=== PATIENT | male | born 1960 | race Caucasian/White ===

== ENCOUNTER 2022-08-17 18:29 | Inpatient (IN) | payer MEDICAID, OTHER ==
[~2022-08-17] VITALS: Ht 185.4 cm; Wt 145.7 kg
[2022-08-17 20:25] LABS: Basophils # (auto) 0 10 ^3/uL (0-0.2); Basophils % (auto) 0.3 % (0.0-2.0); Eosinophils # (auto) 0 10 ^3/uL (0-0.8); Eosinophils % (auto) 0.6 % (0.0-7.0); Lymphocytes # (auto) 0.6 10 ^3/uL (0.4-5.4); Mean Corpuscular Hemoglobin 27.1 pg (28.0-32.0); Mean Corpuscular Hgb Conc. 29.8 g/dL (32.0-36.0); Mean Corpuscular Volume 90.7 fL (80.0-100.0); Monocytes # (auto) 0.6 10 ^3/uL (0-1.3); Monocytes % (auto) 8.8 % (0.0-12.0); Neutrophils # (auto) 5.2 10 ^3/uL (1.6-8.6); Neutrophils % (auto) 81.3 % (37.0-80.0); Nucleated Red Blood Cells % 0.1 %; Red Blood Cells 1.88 10^6/uL (4.5-5.90); Red Cell Distribution Width 17.7 % (11.8-14.3); White Blood Cell 6.4 10^3/uL (4.4-10.8)
[2022-08-17 20:45] LABS: Albumin 2.8 g/dL (3.4-5.0); BUN/Creatinine Ratio 17.9; Calcium 9.5 mg/dL (8.5-10.1)
[2022-08-17 20:48] LABS: Bilirubin, Total 1.8 mg/dL (0.2-1.0); Hemoglobin 5.1 g/dL (13.5-17.5); Total Protein 6.1 g/dL (6.4-8.2)
[2022-08-17 21:00] LABS: Potassium 7.1 mmol/L (3.5-5.1)
[2022-08-17] MEDS ORDERED: FUROSEMIDE 100 MG/10ML VIAL IV ONE (21:00)
[2022-08-17] MEDS ORDERED: ALBUTEROL MEDNEB 2.5 mg/3ml NEB ONE (21:12)
[2022-08-17] MEDS ORDERED: DEXTROSE (50%) 50ML SYRG IV ONE (21:15)
[2022-08-17] MEDS ORDERED: CALCIUM GLUC 1,000mg/50ml-NS 50 ML IV ONE (21:15)
[2022-08-17] MEDS ORDERED: ALBUTEROL SULF 2.5 MG/0.5ML(0.5%) NEB SOLN NEB ONE (21:15)
[2022-08-17] MEDS ORDERED: InsuLIN REG 1unit/0.01ml Soln (100units/ml) IV ONE (21:15)
[2022-08-17] MEDS ORDERED: PANTOPRAZOLE 40 MG/10 ML VIAL INJ IV ONE (23:00)
[2022-08-17] MEDS ORDERED: MORPHINE SULFATE INJ 2 MG/ml SYRG IV PRN (23:00)
[2022-08-17] MEDS ORDERED: NITROGLYCERIN 0.4 MG SL TAB SL PRN (23:00)
[2022-08-17] MEDS ORDERED: DEXTROSE (50%) 50ML SYRG IV PRN (23:00)
[2022-08-17] MEDS ORDERED: GABA300C10 PO (23:00)
[2022-08-17] MEDS ORDERED: LEVO175T66 PO (23:00)
[2022-08-17] MEDS ORDERED: metroNIDAZOLE 500MG/100ML 100 ML IV ONE (23:00)
[2022-08-17] MEDS ORDERED: cefTRIAXone 1GM/50ML D5W 50 ML IV ONE (23:00)
[2022-08-17] MEDS: SODIUM CHLORIDE 0.9% 1,000 ML IV SCH (23:15)
[2022-08-17 23:34] LABS: Folate (Folic Acid) > 24.00 ng/mL (5.38-24)
[2022-08-18] VITALS (16 sets, daily range): BP systolic 67–128; BP diastolic 34–108
[2022-08-18 00:16] LABS: BUN/Creatinine Ratio 17.1; Calcium 9.4 mg/dL (8.5-10.1)
[2022-08-18 00:25] LABS: Potassium 6.6 mmol/L (3.5-5.1)
[2022-08-18 01:08] LABS: Urine Bacteria FEW /hpf (None Seen); Urine Blood Negative /uL (Negative); Urine Hyaline Cast FEW /lpf (0 - 2); Urine Specific Gravity 1.012 (1.001-1.035); Urine WBC 2 /hpf (0 - 3)
[2022-08-18 05:22] LABS: Basophils # (auto) 0 10 ^3/uL (0-0.2); Lymphocytes # (auto) 0.7 10 ^3/uL (0.4-5.4); Monocytes # (auto) 0.9 10 ^3/uL (0-1.3); Neutrophils # (auto) 5.4 10 ^3/uL (1.6-8.6); Nucleated Red Blood Cells % 0.1 %
[2022-08-18 05:24] LABS: Basophils % (auto) 0.1 % (0.0-2.0); Eosinophils # (auto) 0 10 ^3/uL (0-0.8); Eosinophils % (auto) 0.6 % (0.0-7.0); Hematocrit 15.9 % (41.0-53.0); Lymphocytes % (auto) 9.7 % (10.0-50.0); Mean Corpuscular Hemoglobin 27.2 pg (28.0-32.0); Mean Corpuscular Hgb Conc. 30.8 g/dL (32.0-36.0); Mean Corpuscular Volume 88.1 fL (80.0-100.0); Monocytes % (auto) 12.3 % (0.0-12.0); Neutrophils % (auto) 77.3 % (37.0-80.0); Red Blood Cells 1.81 10^6/uL (4.5-5.90); Red Cell Distribution Width 17.5 % (11.8-14.3)
[2022-08-18 05:35] LABS: Hemoglobin 4.9 g/dL (13.5-17.5)
[2022-08-18 05:36] LABS: BUN/Creatinine Ratio 17.8; Calcium 9.5 mg/dL (8.5-10.1)
[2022-08-18 05:41] LABS: Potassium 6.4 mmol/L (3.5-5.1)
[2022-08-18] MEDS: InsuLIN REG 1unit/0.01ml Soln (100units/ml) SC SCH ×5 (06:00→23:52)
[2022-08-18] MEDS: ACCU-CHEK COMFORT CURVE STRIP VI SCH ×5 (06:00→23:51)
[2022-08-18] MEDS: metroNIDAZOLE 500MG/100ML 100 ML IV SCH ×3 (08:21→22:23)
[2022-08-18] MEDS ORDERED: SODIUM BICARBONATE 8.4 % INJ 50ML VIAL IV ONE ×2 (09:15→14:15)
[2022-08-18] MEDS ORDERED: DEXTROSE (50%) 50ML SYRG IV ONE ×2 (09:15→14:15)
[2022-08-18] MEDS ORDERED: FUROSEMIDE 100 MG/10ML VIAL IV ONE (09:15)
[2022-08-18] MEDS ORDERED: InsuLIN REG 1unit/0.01ml Soln (100units/ml) IV ONE ×2 (09:15→14:15)
[2022-08-18] MEDS ORDERED: CALCIUM GLUC 1,000mg/50ml-NS 50 ML IV ONE ×2 (09:15→14:15)
[2022-08-18 09:38] LABS: INR 1.26 (0.9-1.15)
[2022-08-18] MEDS ORDERED: FUROSEMIDE 20 MG/2 ML VIAL IV SCH (10:00)
[2022-08-18] MEDS: PANTOPRAZOLE 40 MG/10 ML VIAL INJ IV SCH ×2 (10:46→22:22)
[2022-08-18 11:58] LABS: Alcohol, Urine < 3.0 mg/dL (0-10); Amphetamine Screen, Urine NEGATIVE (NEGATIVE); Barbiturate Scree,Urine NEGATIVE (NEGATIVE); Benzodiazephine Screen, Urine POSITIVE (NEGATIVE); Cannabinoid Screen, Urine NEGATIVE (NEGATIVE); Cocaine Screen, Urine NEGATIVE (NEGATIVE); Opiate Scree,Urine NEGATIVE (NEGATIVE); Phencyclidine Screen, Urine NEGATIVE (NEGATIVE)
[2022-08-18 12:12] LABS: Hepatitis B Surface Antibody Negative (Negative)
[2022-08-18] MEDS ORDERED: AZITHROMYCIN 500MG/ 250ML 250 ML IV ONE (12:30)
[2022-08-18] MEDS ORDERED: LACTULOSE 20Gm/30ML SOLN PO ONE (12:45)
[2022-08-18 12:51] LABS: Hepatitis A Total Antibody Negative (Negative)
[2022-08-18 13:09] LABS: Basophils # (auto) 0 10 ^3/uL (0-0.2); Basophils % (auto) 0.6 % (0.0-2.0); Eosinophils # (auto) 0.1 10 ^3/uL (0-0.8); Hematocrit 20.7 % (41.0-53.0); Nucleated Red Blood Cells % 0.1 %; Red Blood Cells 2.37 10^6/uL (4.5-5.90); Red Cell Distribution Width 16.5 % (11.8-14.3)
[2022-08-18 13:10] LABS: Eosinophils % (auto) 1.5 % (0.0-7.0); Lymphocytes # (auto) 0.7 10 ^3/uL (0.4-5.4); Lymphocytes % (auto) 8.8 % (10.0-50.0); Mean Corpuscular Hemoglobin 28.1 pg (28.0-32.0); Mean Corpuscular Hgb Conc. 32.2 g/dL (32.0-36.0); Mean Corpuscular Volume 87.5 fL (80.0-100.0); Neutrophils # (auto) 5.8 10 ^3/uL (1.6-8.6); Neutrophils % (auto) 76.1 % (37.0-80.0); White Blood Cell 7.6 10^3/uL (4.4-10.8)
[2022-08-18 13:12] LABS: Hepatitis C Antibody Negative (Negative)
[2022-08-18 13:22] LABS: Hemoglobin 6.7 g/dL (13.5-17.5)
[2022-08-18] MEDS: SODIUM CHLORIDE 0.9% 1,000 ML IV SCH (13:27)
[2022-08-18 13:29] LABS: Albumin 2.7 g/dL (3.4-5.0); Calcium 9.5 mg/dL (8.5-10.1)
[2022-08-18 13:32] LABS: Bilirubin, Total 2.1 mg/dL (0.2-1.0); Total Protein 6.2 g/dL (6.4-8.2)
[2022-08-18 13:40] LABS: Potassium 6.1 mmol/L (3.5-5.1)
[2022-08-18] MEDS ORDERED: FUROSEMIDE 40 MG/4 ML VIAL IV ONE (14:15)
[2022-08-18] MEDS: DOPamine 1600MCG/ML D5W 250 ML IV SCH (15:39)
[2022-08-18] MEDS: ALBUMIN 25% 100 ML IV SCH ×2 (15:43→21:47)
[2022-08-18 18:07] LABS: % Iron Saturation 4.6 % (20-55)
[2022-08-18] MEDS: FUROSEMIDE 40 MG/4 ML VIAL IV SCH (18:45)
[2022-08-18] MEDS: cefTRIAXone 1GM/50ML D5W 50 ML IV SCH (21:06)
[2022-08-19 05:41] LABS: Calcium 9.9 mg/dL (8.5-10.1)
[2022-08-19 05:53] LABS: BUN/Creatinine Ratio 19.8; Potassium 5.8 mmol/L (3.5-5.1)
[2022-08-19] MEDS: FUROSEMIDE 40 MG/4 ML VIAL IV SCH ×3 (06:00→18:15)
[2022-08-19] MEDS: ALBUMIN 25% 100 ML IV SCH (06:23)
[2022-08-19] MEDS: metroNIDAZOLE 500MG/100ML 100 ML IV SCH ×3 (06:29→22:27)
[2022-08-19] MEDS: ACCU-CHEK COMFORT CURVE STRIP VI SCH ×3 (06:50→18:11)
[2022-08-19] MEDS: InsuLIN REG 1unit/0.01ml Soln (100units/ml) SC SCH ×3 (06:53→18:00)
[2022-08-19 09:11] LABS: Basophils # (auto) 0.1 10 ^3/uL (0-0.2); Eosinophils # (auto) 0.1 10 ^3/uL (0-0.8); Lymphocytes # (auto) 0.6 10 ^3/uL (0.4-5.4); Red Cell Distribution Width 16.5 % (11.8-14.3)
[2022-08-19 09:13] LABS: Basophils % (auto) 1.3 % (0.0-2.0); Hematocrit 22.4 % (41.0-53.0); Mean Corpuscular Hemoglobin 27.8 pg (28.0-32.0); Mean Corpuscular Hgb Conc. 31.1 g/dL (32.0-36.0); Mean Corpuscular Volume 89.5 fL (80.0-100.0); Monocytes # (auto) 0.7 10 ^3/uL (0-1.3); Monocytes % (auto) 9.3 % (0.0-12.0); Neutrophils # (auto) 5.6 10 ^3/uL (1.6-8.6); Neutrophils % (auto) 80.4 % (37.0-80.0); Nucleated Red Blood Cells % 0.2 %
[2022-08-19] MEDS: PANTOPRAZOLE 40 MG/10 ML VIAL INJ IV SCH ×2 (10:31→22:22)
[2022-08-19] MEDS: AZITHROMYCIN 500MG/ 250ML 250 ML IV SCH (10:31)
[2022-08-19 11:40] VITALS: BP 95/48
[2022-08-19 12:00] VITALS: BP 92/39
[2022-08-19] MEDS: NOREPINEPHRINE 8 MG/250ML KIT 250 ML IV SCH (13:09)
[2022-08-19] MEDS: LACTULOSE 20Gm/30ML SOLN PO SCH ×2 (13:40→17:58)
[2022-08-19] MEDS: DOPamine 1600MCG/ML D5W 250 ML IV SCH (13:40)
[2022-08-19 14:50] VITALS: BP 127/68
[2022-08-19] MEDS: SODIUM ZIRCONIUM CYCL 10 GM PAK PO SCH ×2 (15:34→22:22)
[2022-08-19] MEDS: OCTREOTIDE ACETATE 100 MCG/ML VL SUBCUT SCH ×2 (15:34→22:29)
[2022-08-19] MEDS: cefTRIAXone 1GM/50ML D5W 50 ML IV SCH (21:37)
[2022-08-20] MEDS: LACTULOSE 20Gm/30ML SOLN PO SCH ×4 (00:58→16:07)
[2022-08-20] MEDS: ACCU-CHEK COMFORT CURVE STRIP VI SCH ×4 (00:58→16:06)
[2022-08-20] MEDS: InsuLIN REG 1unit/0.01ml Soln (100units/ml) SC SCH ×4 (01:06→16:05)
[2022-08-20] MEDS: SODIUM ZIRCONIUM CYCL 10 GM PAK PO SCH (06:36)
[2022-08-20] MEDS: metroNIDAZOLE 500MG/100ML 100 ML IV SCH ×3 (06:36→23:02)
[2022-08-20] MEDS: OCTREOTIDE ACETATE 100 MCG/ML VL SUBCUT SCH ×3 (06:41→23:08)
[2022-08-20] MEDS: FUROSEMIDE 40 MG/4 ML VIAL IV SCH ×2 (06:41→16:07)
[2022-08-20] MEDS: AZITHROMYCIN 500MG/ 250ML 250 ML IV SCH (09:08)
[2022-08-20] MEDS: PANTOPRAZOLE 40 MG/10 ML VIAL INJ IV SCH ×2 (09:08→23:08)
[2022-08-20] MEDS: NOREPINEPHRINE 8 MG/250ML KIT 250 ML IV SCH (10:49)
[2022-08-20] MEDS: SODIUM BICARBONATE 50ML VIAL 50 ML in SOD CHL 0.45% 1,000 ML IV SCH (11:30)
[2022-08-20 13:12] LABS: Basophils # (auto) 0 10 ^3/uL (0-0.2); Basophils % (auto) 0.7 % (0.0-2.0); Eosinophils # (auto) 0.2 10 ^3/uL (0-0.8); Eosinophils % (auto) 2.8 % (0.0-7.0); Lymphocytes # (auto) 0.8 10 ^3/uL (0.4-5.4); Monocytes # (auto) 0.8 10 ^3/uL (0-1.3); Neutrophils # (auto) 5.2 10 ^3/uL (1.6-8.6); Red Cell Distribution Width 16.6 % (11.8-14.3)
[2022-08-20 13:14] LABS: Hematocrit 24.2 % (41.0-53.0); Hemoglobin 7.9 g/dL (13.5-17.5); Mean Corpuscular Hemoglobin 28.5 pg (28.0-32.0); Mean Corpuscular Hgb Conc. 32.4 g/dL (32.0-36.0); Mean Corpuscular Volume 87.8 fL (80.0-100.0); Monocytes % (auto) 11.6 % (0.0-12.0); Neutrophils % (auto) 73.9 % (37.0-80.0); Nucleated Red Blood Cells % 0.2 %; Red Blood Cells 2.76 10^6/uL (4.5-5.90)
[2022-08-20] MEDS: DOPamine 1600MCG/ML D5W 250 ML IV SCH (13:52)
[2022-08-20] MEDS ORDERED: METOPROLOL TARTRATE 1MG/1ML-5ML VIAL IV ONE (15:00)
[2022-08-20] MEDS: cefTRIAXone 1GM/50ML D5W 50 ML IV SCH (21:40)
[2022-08-20] MEDS ORDERED: AMIODARONE HCL 200 MG TAB PO ONE (22:15)
[2022-08-21] MEDS: ACCU-CHEK COMFORT CURVE STRIP VI SCH ×4 (01:22→18:02)
[2022-08-21] MEDS: LACTULOSE 20Gm/30ML SOLN PO SCH ×4 (01:36→18:11)
[2022-08-21] MEDS: InsuLIN REG 1unit/0.01ml Soln (100units/ml) SC SCH ×4 (01:39→18:13)
[2022-08-21] MEDS: SODIUM BICARBONATE 50ML VIAL 50 ML in SOD CHL 0.45% 1,000 ML IV SCH (01:39)
[2022-08-21] MEDS ORDERED: METOPROLOL TARTRATE 1MG/1ML-5ML VIAL IV ONE (03:45)
[2022-08-21] MEDS ORDERED: SODIUM BICARBONATE 50ML VIAL 50 ML in SOD CHL 0.45% 1,000 ML IV SCH (04:00)
[2022-08-21] MEDS: NOREPINEPHRINE 8 MG/250ML KIT 250 ML IV SCH (05:38)
[2022-08-21] MEDS: FUROSEMIDE 40 MG/4 ML VIAL IV SCH ×2 (06:18→18:12)
[2022-08-21] MEDS: OCTREOTIDE ACETATE 100 MCG/ML VL SUBCUT SCH ×3 (06:19→22:02)
[2022-08-21] MEDS: metroNIDAZOLE 500MG/100ML 100 ML IV SCH ×3 (06:19→21:58)
[2022-08-21 09:06] LABS: Basophils # (auto) 0.1 10 ^3/uL (0-0.2); Eosinophils # (auto) 0.2 10 ^3/uL (0-0.8); Mean Corpuscular Hemoglobin 27.8 pg (28.0-32.0); Nucleated Red Blood Cells % 0.1 %
[2022-08-21 09:08] LABS: Basophils % (auto) 0.9 % (0.0-2.0); Eosinophils % (auto) 2.3 % (0.0-7.0); Hematocrit 25.5 % (41.0-53.0); Lymphocytes # (auto) 1.1 10 ^3/uL (0.4-5.4); Lymphocytes % (auto) 11.9 % (10.0-50.0); Mean Corpuscular Hgb Conc. 31.6 g/dL (32.0-36.0); Mean Corpuscular Volume 87.9 fL (80.0-100.0); Neutrophils # (auto) 6.8 10 ^3/uL (1.6-8.6); Neutrophils % (auto) 73.9 % (37.0-80.0); Red Cell Distribution Width 16.7 % (11.8-14.3); White Blood Cell 9.2 10^3/uL (4.4-10.8)
[2022-08-21 09:16] LABS: Albumin 2.9 g/dL (3.4-5.0); Calcium 8.9 mg/dL (8.5-10.1); Potassium 4.6 mmol/L (3.5-5.1)
[2022-08-21 09:19] LABS: BUN/Creatinine Ratio 22.8; Total Protein 5.9 g/dL (6.4-8.2)
[2022-08-21] MEDS: AZITHROMYCIN 500MG/ 250ML 250 ML IV SCH (10:39)
[2022-08-21] MEDS: PANTOPRAZOLE 40 MG/10 ML VIAL INJ IV SCH ×2 (10:39→21:58)
[2022-08-21] MEDS: AMIODARONE HCL 200 MG TAB PO SCH ×2 (10:40→22:01)
[2022-08-21] MEDS: SODIUM CHLORIDE 0.9% 1,000 ML IV SCH ×2 (12:49→21:34)
[2022-08-21 13:25] LABS: Protein, Urine 6.5 mg/dL (0.0-11.9)
[2022-08-21] MEDS: cefTRIAXone 1GM/50ML D5W 50 ML IV SCH (21:00)
[2022-08-22] VITALS (58 sets, daily range): BP systolic 86–121; BP diastolic 42–84
[2022-08-22] MEDS: ACCU-CHEK COMFORT CURVE STRIP VI SCH ×4 (00:30→18:11)
[2022-08-22] MEDS: InsuLIN REG 1unit/0.01ml Soln (100units/ml) SC SCH ×4 (00:33→18:00)
[2022-08-22 05:25] LABS: Albumin 2.8 g/dL (3.4-5.0); Calcium 8.6 mg/dL (8.5-10.1); Potassium 4.1 mmol/L (3.5-5.1)
[2022-08-22 05:28] LABS: BUN/Creatinine Ratio 24.3; Bilirubin, Total 1.5 mg/dL (0.2-1.0); Total Protein 5.2 g/dL (6.4-8.2)
[2022-08-22] MEDS: metroNIDAZOLE 500MG/100ML 100 ML IV SCH ×3 (05:32→22:41)
[2022-08-22] MEDS: OCTREOTIDE ACETATE 100 MCG/ML VL SUBCUT SCH ×3 (05:49→22:40)
[2022-08-22] MEDS: FUROSEMIDE 40 MG/4 ML VIAL IV SCH ×2 (06:07→18:27)
[2022-08-22 06:19] LABS: Basophils # (auto) 0 10 ^3/uL (0-0.2); Eosinophils # (auto) 0.1 10 ^3/uL (0-0.8); Lymphocytes # (auto) 0.7 10 ^3/uL (0.4-5.4); Lymphocytes % (auto) 16.4 % (10.0-50.0); Monocytes # (auto) 0.5 10 ^3/uL (0-1.3)
[2022-08-22 06:21] LABS: Basophils % (auto) 0.5 % (0.0-2.0); Eosinophils % (auto) 2.3 % (0.0-7.0); Mean Corpuscular Hemoglobin 27.9 pg (28.0-32.0); Mean Corpuscular Hgb Conc. 31.8 g/dL (32.0-36.0); Mean Corpuscular Volume 87.7 fL (80.0-100.0); Monocytes % (auto) 10.9 % (0.0-12.0); Neutrophils % (auto) 69.9 % (37.0-80.0); Nucleated Red Blood Cells % 0.2 %; White Blood Cell 4.3 10^3/uL (4.4-10.8)
[2022-08-22] MEDS: LEVOTHYROXINE SODIUM 50 MCG TAB PO SCH (06:50)
[2022-08-22] MEDS: SODIUM CHLORIDE 0.9% 1,000 ML IV SCH ×3 (07:40→20:51)
[2022-08-22] MEDS ORDERED: MIDODRINE HCL 10 MG TAB PO ONE (08:15)
[2022-08-22] MEDS ORDERED: MIDODRINE HCL 10 MG TAB PO SCH (10:00)
[2022-08-22] MEDS: AZITHROMYCIN 500MG/ 250ML 250 ML IV SCH (10:19)
[2022-08-22] MEDS: AMIODARONE HCL 200 MG TAB PO SCH ×2 (10:19→22:39)
[2022-08-22] MEDS: LACTULOSE 20Gm/30ML SOLN PO SCH ×2 (10:19→22:00)
[2022-08-22] MEDS: PANTOPRAZOLE 40 MG/10 ML VIAL INJ IV SCH ×2 (10:19→22:38)
[2022-08-22] MEDS: NOREPINEPHRINE 8 MG/250ML KIT 250 ML IV SCH (10:45)
[2022-08-22] MEDS ORDERED: TAMS0.4C36 PO (11:35)
[2022-08-22] MEDS ORDERED: ALLO100T PO (11:35)
[2022-08-22] MEDS ORDERED: GAB100C PO (11:35)
[2022-08-22] MEDS ORDERED: FURO40TA4 PO (11:35)
[2022-08-22] MEDS ORDERED: FOLI1TAB6 PO (11:36)
[2022-08-22] MEDS ORDERED: ATOR20TA50 PO (11:36)
[2022-08-22] MEDS ORDERED: PANT40T PO (11:36)
[2022-08-22] MEDS ORDERED: MAGN400T6 PO (11:36)
[2022-08-22] MEDS: MIDODRINE HCL 10 MG TAB PO SCH ×2 (13:00→18:28)
[2022-08-22] MEDS: cefTRIAXone 1GM/50ML D5W 50 ML IV SCH (20:51)
[2022-08-23] VITALS (62 sets, daily range): BP systolic 80–119; BP diastolic 38–70
[2022-08-23] MEDS: InsuLIN REG 1unit/0.01ml Soln (100units/ml) SC SCH ×4 (00:39→18:30)
[2022-08-23] MEDS: ACCU-CHEK COMFORT CURVE STRIP VI SCH ×4 (00:40→18:23)
[2022-08-23 04:27] LABS: Basophils # (auto) 0 10 ^3/uL (0-0.2); Eosinophils # (auto) 0.1 10 ^3/uL (0-0.8); Hemoglobin 7.8 g/dL (13.5-17.5); Lymphocytes # (auto) 0.6 10 ^3/uL (0.4-5.4); Monocytes # (auto) 0.4 10 ^3/uL (0-1.3); Nucleated Red Blood Cells % 0.1 %; Red Cell Distribution Width 17.5 % (11.8-14.3)
[2022-08-23 04:28] LABS: Basophils % (auto) 0.8 % (0.0-2.0); Eosinophils % (auto) 3.2 % (0.0-7.0); Hematocrit 24.7 % (41.0-53.0); Lymphocytes % (auto) 16.7 % (10.0-50.0); Mean Corpuscular Hemoglobin 27.9 pg (28.0-32.0); Mean Corpuscular Hgb Conc. 31.8 g/dL (32.0-36.0); Mean Corpuscular Volume 87.8 fL (80.0-100.0); Monocytes % (auto) 10.2 % (0.0-12.0); Neutrophils # (auto) 2.5 10 ^3/uL (1.6-8.6); Neutrophils % (auto) 69.1 % (37.0-80.0); Red Blood Cells 2.81 10^6/uL (4.5-5.90); White Blood Cell 3.6 10^3/uL (4.4-10.8)
[2022-08-23 04:37] LABS: Albumin 2.7 g/dL (3.4-5.0); Calcium 8.6 mg/dL (8.5-10.1); Potassium 3.9 mmol/L (3.5-5.1)
[2022-08-23 04:41] LABS: BUN/Creatinine Ratio 22.3; Bilirubin, Total 1.8 mg/dL (0.2-1.0); Total Protein 5.3 g/dL (6.4-8.2)
[2022-08-23] MEDS: FUROSEMIDE 40 MG/4 ML VIAL IV SCH ×2 (05:47→18:13)
[2022-08-23] MEDS: metroNIDAZOLE 500MG/100ML 100 ML IV SCH ×3 (05:47→21:51)
[2022-08-23] MEDS: MIDODRINE HCL 10 MG TAB PO SCH ×3 (05:48→18:07)
[2022-08-23] MEDS: OCTREOTIDE ACETATE 100 MCG/ML VL SUBCUT SCH ×3 (06:03→21:51)
[2022-08-23] MEDS: SODIUM CHLORIDE 0.9% 1,000 ML IV SCH (06:04)
[2022-08-23] MEDS: LEVOTHYROXINE SODIUM 50 MCG TAB PO SCH (06:56)
[2022-08-23] MEDS: LACTULOSE 20Gm/30ML SOLN PO SCH ×2 (09:45→21:03)
[2022-08-23] MEDS: AMIODARONE HCL 200 MG TAB PO SCH ×2 (09:45→21:51)
[2022-08-23] MEDS: PANTOPRAZOLE 40 MG/10 ML VIAL INJ IV SCH ×2 (09:45→21:50)
[2022-08-23] MEDS: AZITHROMYCIN 500MG/ 250ML 250 ML IV SCH (09:45)
[2022-08-23] MEDS: cefTRIAXone 1GM/50ML D5W 50 ML IV SCH (21:04)
[2022-08-24] VITALS (41 sets, daily range): BP systolic 83–123; BP diastolic 34–77
[2022-08-24] MEDS: ACCU-CHEK COMFORT CURVE STRIP VI SCH ×5 (01:16→22:58)
[2022-08-24] MEDS: InsuLIN REG 1unit/0.01ml Soln (100units/ml) SC SCH ×5 (01:16→23:01)
[2022-08-24 03:48] LABS: Basophils # (auto) 0 10 ^3/uL (0-0.2); Basophils % (auto) 0.8 % (0.0-2.0); Eosinophils # (auto) 0.1 10 ^3/uL (0-0.8); Hematocrit 26.6 % (41.0-53.0); Hemoglobin 8.5 g/dL (13.5-17.5); Lymphocytes # (auto) 0.6 10 ^3/uL (0.4-5.4); Lymphocytes % (auto) 16.1 % (10.0-50.0); Mean Corpuscular Hemoglobin 27.9 pg (28.0-32.0); Mean Corpuscular Hgb Conc. 31.8 g/dL (32.0-36.0); Monocytes # (auto) 0.4 10 ^3/uL (0-1.3); Monocytes % (auto) 9.3 % (0.0-12.0); Neutrophils # (auto) 2.8 10 ^3/uL (1.6-8.6); Neutrophils % (auto) 71.8 % (37.0-80.0); Nucleated Red Blood Cells % 0.1 %; Red Blood Cells 3.03 10^6/uL (4.5-5.90); Red Cell Distribution Width 17.5 % (11.8-14.3); White Blood Cell 3.9 10^3/uL (4.4-10.8)
[2022-08-24 04:14] LABS: BUN/Creatinine Ratio 20.3; Calcium 8.9 mg/dL (8.5-10.1); Magnesium 1.6 mg/dL (1.6-2.6); Potassium 3.8 mmol/L (3.5-5.1)
[2022-08-24] MEDS: FUROSEMIDE 40 MG/4 ML VIAL IV SCH ×2 (06:24→18:10)
[2022-08-24] MEDS: MIDODRINE HCL 10 MG TAB PO SCH ×3 (06:24→18:10)
[2022-08-24] MEDS: metroNIDAZOLE 500MG/100ML 100 ML IV SCH ×3 (06:24→21:38)
[2022-08-24] MEDS: OCTREOTIDE ACETATE 100 MCG/ML VL SUBCUT SCH ×3 (06:25→21:44)
[2022-08-24] MEDS: LEVOTHYROXINE SODIUM 50 MCG TAB PO SCH (06:41)
[2022-08-24] MEDS ORDERED: DEXTROSE (50%) 50ML SYRG IV PRN (08:00)
[2022-08-24] MEDS: AMIODARONE HCL 200 MG TAB PO SCH ×2 (10:06→21:39)
[2022-08-24] MEDS: PANTOPRAZOLE 40 MG/10 ML VIAL INJ IV SCH ×2 (10:06→21:39)
[2022-08-24] MEDS: AZITHROMYCIN 500MG/ 250ML 250 ML IV SCH (10:06)
[2022-08-24] MEDS: MAGNESIUM SULFATE 1GM/100ML 100 ML IV SCH ×2 (10:19→12:01)
[2022-08-24] MEDS ORDERED: fentaNYL CITRATE 100 MCG/2 ML VL ONE (15:16)
[2022-08-24] MEDS ORDERED: MIDAZOLAM HCL 2MG/2ML 2ml VIAL (1mg/ml) ONE (15:17)
[2022-08-24] MEDS ORDERED: PROPOFOL 10 MG/ML 20 ML IV ONE (15:26)
[2022-08-24] MEDS: cefTRIAXone 1GM/50ML D5W 50 ML IV SCH (21:05)
[2022-08-25] VITALS (21 sets, daily range): BP systolic 96–118; BP diastolic 39–67
[2022-08-25 03:55] LABS: Basophils # (auto) 0 10 ^3/uL (0-0.2); Eosinophils # (auto) 0.1 10 ^3/uL (0-0.8); Hemoglobin 8.3 g/dL (13.5-17.5); Lymphocytes # (auto) 0.7 10 ^3/uL (0.4-5.4); Monocytes # (auto) 0.5 10 ^3/uL (0-1.3); Neutrophils # (auto) 3.9 10 ^3/uL (1.6-8.6); Nucleated Red Blood Cells % 0.1 %; White Blood Cell 5.2 10^3/uL (4.4-10.8)
[2022-08-25 03:58] LABS: Basophils % (auto) 0.5 % (0.0-2.0); Eosinophils % (auto) 1.8 % (0.0-7.0); Lymphocytes % (auto) 13.2 % (10.0-50.0); Mean Corpuscular Hemoglobin 27.9 pg (28.0-32.0); Mean Corpuscular Hgb Conc. 31.9 g/dL (32.0-36.0); Mean Corpuscular Volume 87.5 fL (80.0-100.0); Neutrophils % (auto) 75.5 % (37.0-80.0); Red Blood Cells 2.97 10^6/uL (4.5-5.90); Red Cell Distribution Width 18.3 % (11.8-14.3)
[2022-08-25 04:05] LABS: BUN/Creatinine Ratio 19.3; Calcium 8.7 mg/dL (8.5-10.1); Potassium 3.7 mmol/L (3.5-5.1)
[2022-08-25 04:06] LABS: INR 1.58 (0.9-1.15)
[2022-08-25] MEDS: FUROSEMIDE 40 MG/4 ML VIAL IV SCH ×2 (05:57→17:38)
[2022-08-25] MEDS: metroNIDAZOLE 500MG/100ML 100 ML IV SCH ×3 (05:57→22:00)
[2022-08-25] MEDS: OCTREOTIDE ACETATE 100 MCG/ML VL SUBCUT SCH ×3 (05:58→21:09)
[2022-08-25] MEDS: MIDODRINE HCL 10 MG TAB PO SCH ×3 (05:59→17:38)
[2022-08-25] MEDS: InsuLIN REG 1unit/0.01ml Soln (100units/ml) SC SCH ×4 (06:34→21:21)
[2022-08-25] MEDS: LEVOTHYROXINE SODIUM 50 MCG TAB PO SCH (06:34)
[2022-08-25] MEDS: ACCU-CHEK COMFORT CURVE STRIP VI SCH ×4 (06:35→21:12)
[2022-08-25] MEDS: AMIODARONE HCL 200 MG TAB PO SCH ×2 (09:31→21:10)
[2022-08-25] MEDS: PANTOPRAZOLE 40 MG/10 ML VIAL INJ IV SCH ×2 (09:33→21:09)
[2022-08-25] MEDS: AZITHROMYCIN 500MG/ 250ML 250 ML IV SCH (09:33)
[2022-08-25] MEDS: MAGNESIUM SULFATE 1GM/100ML 100 ML IV SCH ×2 (11:22→13:27)
[2022-08-25] MEDS: cefTRIAXone 1GM/50ML D5W 50 ML IV SCH (21:05)
[2022-08-26 05:55] LABS: Basophils # (auto) 0 10 ^3/uL (0-0.2); Basophils % (auto) 0.5 % (0.0-2.0); Eosinophils # (auto) 0.1 10 ^3/uL (0-0.8); Eosinophils % (auto) 1.8 % (0.0-7.0); Hematocrit 27.5 % (41.0-53.0); Hemoglobin 8.7 g/dL (13.5-17.5); Lymphocytes # (auto) 0.9 10 ^3/uL (0.4-5.4); Lymphocytes % (auto) 14.7 % (10.0-50.0); Mean Corpuscular Hemoglobin 28.1 pg (28.0-32.0); Mean Corpuscular Hgb Conc. 31.7 g/dL (32.0-36.0); Mean Corpuscular Volume 88.6 fL (80.0-100.0); Monocytes # (auto) 0.5 10 ^3/uL (0-1.3); Neutrophils # (auto) 4.5 10 ^3/uL (1.6-8.6); Nucleated Red Blood Cells % 0.1 %; Red Blood Cells 3.11 10^6/uL (4.5-5.90); Red Cell Distribution Width 18.6 % (11.8-14.3)
[2022-08-26] MEDS: OCTREOTIDE ACETATE 100 MCG/ML VL SUBCUT SCH ×4 (06:00→22:59)
[2022-08-26 06:02] LABS: BUN/Creatinine Ratio 16.9; Potassium 3.6 mmol/L (3.5-5.1)
[2022-08-26] MEDS: metroNIDAZOLE 500MG/100ML 100 ML IV SCH ×3 (06:04→23:50)
[2022-08-26] MEDS: MIDODRINE HCL 10 MG TAB PO SCH ×3 (06:08→17:59)
[2022-08-26] MEDS: LEVOTHYROXINE SODIUM 50 MCG TAB PO SCH (06:12)
[2022-08-26] MEDS: ACCU-CHEK COMFORT CURVE STRIP VI SCH ×4 (06:13→22:00)
[2022-08-26] MEDS: FUROSEMIDE 40 MG/4 ML VIAL IV SCH ×2 (06:13→17:59)
[2022-08-26] MEDS: InsuLIN REG 1unit/0.01ml Soln (100units/ml) SC SCH ×4 (06:13→22:00)
[2022-08-26 09:25] VITALS: BP 115/68
[2022-08-26] MEDS: PANTOPRAZOLE 40 MG/10 ML VIAL INJ IV SCH ×2 (09:55→22:54)
[2022-08-26] MEDS: AMIODARONE HCL 200 MG TAB PO SCH ×2 (09:55→22:53)
[2022-08-26] MEDS: AZITHROMYCIN 500MG/ 250ML 250 ML IV SCH (09:55)
[2022-08-26 13:52] VITALS: BP 117/63
[2022-08-26 17:23] VITALS: BP 111/47
[2022-08-26 22:00] VITALS: BP 100/61
[2022-08-26] MEDS: cefTRIAXone 1GM/50ML D5W 50 ML IV SCH (22:55)
[2022-08-27 05:00] VITALS: BP 95/59
[2022-08-27 05:21] LABS: Basophils # (auto) 0 10 ^3/uL (0-0.2); Basophils % (auto) 0.8 % (0.0-2.0); Eosinophils # (auto) 0.1 10 ^3/uL (0-0.8); Eosinophils % (auto) 2.1 % (0.0-7.0); Hematocrit 28.9 % (41.0-53.0); Hemoglobin 9.2 g/dL (13.5-17.5); Lymphocytes # (auto) 0.8 10 ^3/uL (0.4-5.4); Lymphocytes % (auto) 14.3 % (10.0-50.0); Mean Corpuscular Hemoglobin 28.1 pg (28.0-32.0); Mean Corpuscular Hgb Conc. 31.8 g/dL (32.0-36.0); Mean Corpuscular Volume 88.2 fL (80.0-100.0); Monocytes # (auto) 0.5 10 ^3/uL (0-1.3); Monocytes % (auto) 8.9 % (0.0-12.0); Neutrophils # (auto) 4.4 10 ^3/uL (1.6-8.6); Neutrophils % (auto) 73.9 % (37.0-80.0); Red Blood Cells 3.28 10^6/uL (4.5-5.90); Red Cell Distribution Width 19.5 % (11.8-14.3)
[2022-08-27 05:42] LABS: BUN/Creatinine Ratio 14.6
[2022-08-27] MEDS: OCTREOTIDE ACETATE 100 MCG/ML VL SUBCUT SCH ×4 (06:03→22:00)
[2022-08-27] MEDS: MIDODRINE HCL 10 MG TAB PO SCH ×3 (06:03→17:42)
[2022-08-27] MEDS: metroNIDAZOLE 500MG/100ML 100 ML IV SCH ×3 (06:05→23:20)
[2022-08-27] MEDS: ACCU-CHEK COMFORT CURVE STRIP VI SCH ×4 (06:12→22:00)
[2022-08-27] MEDS: InsuLIN REG 1unit/0.01ml Soln (100units/ml) SC SCH ×4 (06:13→22:54)
[2022-08-27] MEDS: LEVOTHYROXINE SODIUM 50 MCG TAB PO SCH (07:02)
[2022-08-27] MEDS: FUROSEMIDE 40 MG/4 ML VIAL IV SCH ×2 (07:06→17:42)
[2022-08-27 09:00] VITALS: BP 107/58
[2022-08-27] MEDS: AMIODARONE HCL 200 MG TAB PO SCH ×2 (09:58→22:51)
[2022-08-27] MEDS: PANTOPRAZOLE 40 MG/10 ML VIAL INJ IV SCH ×2 (09:58→22:50)
[2022-08-27] MEDS: AZITHROMYCIN 500MG/ 250ML 250 ML IV SCH (09:58)
[2022-08-27 13:00] VITALS: BP 90/44
[2022-08-27 17:00] VITALS: BP 100/56
[2022-08-27 22:00] VITALS: BP 109/67
[2022-08-27] MEDS: cefTRIAXone 1GM/50ML D5W 50 ML IV SCH (22:50)
[2022-08-28 05:00] VITALS: BP 92/60
[2022-08-28] MEDS: OCTREOTIDE ACETATE 100 MCG/ML VL SUBCUT SCH ×3 (06:00→21:51)
[2022-08-28 06:17] LABS: Basophils # (auto) 0 10 ^3/uL (0-0.2); Basophils % (auto) 0.7 % (0.0-2.0); Eosinophils # (auto) 0.1 10 ^3/uL (0-0.8); Eosinophils % (auto) 2.1 % (0.0-7.0); Hematocrit 27.3 % (41.0-53.0); Hemoglobin 8.9 g/dL (13.5-17.5); Lymphocytes # (auto) 0.6 10 ^3/uL (0.4-5.4); Lymphocytes % (auto) 14.5 % (10.0-50.0); Mean Corpuscular Hemoglobin 28.6 pg (28.0-32.0); Mean Corpuscular Hgb Conc. 32.5 g/dL (32.0-36.0); Mean Corpuscular Volume 87.9 fL (80.0-100.0); Monocytes # (auto) 0.3 10 ^3/uL (0-1.3); Monocytes % (auto) 7.5 % (0.0-12.0); Neutrophils # (auto) 3.3 10 ^3/uL (1.6-8.6); Neutrophils % (auto) 75.2 % (37.0-80.0); Red Blood Cells 3.11 10^6/uL (4.5-5.90); Red Cell Distribution Width 19.6 % (11.8-14.3); White Blood Cell 4.4 10^3/uL (4.4-10.8)
[2022-08-28] MEDS: metroNIDAZOLE 500MG/100ML 100 ML IV SCH ×3 (06:23→22:43)
[2022-08-28] MEDS: ACCU-CHEK COMFORT CURVE STRIP VI SCH ×4 (06:24→21:49)
[2022-08-28] MEDS: FUROSEMIDE 40 MG/4 ML VIAL IV SCH ×2 (06:24→17:33)
[2022-08-28] MEDS: LEVOTHYROXINE SODIUM 50 MCG TAB PO SCH (06:24)
[2022-08-28] MEDS: MIDODRINE HCL 10 MG TAB PO SCH ×3 (06:24→17:34)
[2022-08-28 06:27] LABS: Potassium 3.7 mmol/L (3.5-5.1)
[2022-08-28 06:28] LABS: BUN/Creatinine Ratio 15.3
[2022-08-28] MEDS: InsuLIN REG 1unit/0.01ml Soln (100units/ml) SC SCH ×3 (06:39→22:04)
[2022-08-28 08:00] VITALS: BP 114/57
[2022-08-28] MEDS: AMIODARONE HCL 200 MG TAB PO SCH ×2 (09:53→21:50)
[2022-08-28] MEDS: PANTOPRAZOLE 40 MG/10 ML VIAL INJ IV SCH ×2 (09:53→21:50)
[2022-08-28] MEDS: AZITHROMYCIN 500MG/ 250ML 250 ML IV SCH (09:54)
[2022-08-28 12:00] VITALS: BP 90/53
[2022-08-28 14:46] LABS: INR 1.51 (0.9-1.15)
[2022-08-28 16:00] VITALS: BP 102/63
[2022-08-28] MEDS: cefTRIAXone 1GM/50ML D5W 50 ML IV SCH (21:17)
[2022-08-28 22:00] VITALS: BP 101/57
[2022-08-29 05:00] VITALS: BP 99/53
[2022-08-29] MEDS: metroNIDAZOLE 500MG/100ML 100 ML IV SCH ×3 (05:17→22:23)
[2022-08-29] MEDS: FUROSEMIDE 40 MG/4 ML VIAL IV SCH ×2 (05:18→18:00)
[2022-08-29] MEDS: OCTREOTIDE ACETATE 100 MCG/ML VL SUBCUT SCH ×3 (05:18→22:00)
[2022-08-29] MEDS: MIDODRINE HCL 10 MG TAB PO SCH ×3 (05:18→18:52)
[2022-08-29] MEDS: ACCU-CHEK COMFORT CURVE STRIP VI SCH ×4 (06:38→21:18)
[2022-08-29] MEDS: InsuLIN REG 1unit/0.01ml Soln (100units/ml) SC SCH ×4 (06:38→21:19)
[2022-08-29] MEDS: LEVOTHYROXINE SODIUM 50 MCG TAB PO SCH (06:39)
[2022-08-29 09:00] VITALS: BP 111/61
[2022-08-29] MEDS: PANTOPRAZOLE 40 MG/10 ML VIAL INJ IV SCH ×2 (10:35→21:17)
[2022-08-29] MEDS: AMIODARONE HCL 200 MG TAB PO SCH ×2 (10:35→21:17)
[2022-08-29] MEDS: AZITHROMYCIN 500MG/ 250ML 250 ML IV SCH (10:36)
[2022-08-29] MEDS ORDERED: ZOLPIDEM TARTRATE 5 MG TAB PO PRN (11:15)
[2022-08-29 13:00] VITALS: BP 103/49
[2022-08-29] MEDS ORDERED: ONDANSETRON HCL 4 MG/2 ML VIAL IM ONE (16:15)
[2022-08-29 17:00] VITALS: BP 112/58
[2022-08-29] MEDS: cefTRIAXone 1GM/50ML D5W 50 ML IV SCH (20:51)
[2022-08-29 22:00] VITALS: BP 113/59
[2022-08-30 05:00] VITALS: BP 100/64
[2022-08-30] MEDS: MIDODRINE HCL 10 MG TAB PO SCH ×3 (05:48→18:00)
[2022-08-30] MEDS: OCTREOTIDE ACETATE 100 MCG/ML VL SUBCUT SCH ×2 (05:48→14:00)
[2022-08-30] MEDS: FUROSEMIDE 40 MG/4 ML VIAL IV SCH ×2 (05:48→18:00)
[2022-08-30] MEDS: metroNIDAZOLE 500MG/100ML 100 ML IV SCH ×2 (05:48→14:00)
[2022-08-30 06:11] LABS: Potassium 3.7 mmol/L (3.5-5.1)
[2022-08-30 06:18] LABS: Albumin 2.7 g/dL (3.4-5.0); BUN/Creatinine Ratio 14.4; Bilirubin, Total 1.4 mg/dL (0.2-1.0); Calcium 8.5 mg/dL (8.5-10.1); Total Protein 5.4 g/dL (6.4-8.2)
[2022-08-30] MEDS: ACCU-CHEK COMFORT CURVE STRIP VI SCH ×3 (06:23→17:00)
[2022-08-30] MEDS: InsuLIN REG 1unit/0.01ml Soln (100units/ml) SC SCH ×3 (06:23→17:00)
[2022-08-30] MEDS: LEVOTHYROXINE SODIUM 50 MCG TAB PO SCH (06:25)
[2022-08-30 09:00] VITALS: BP 105/62
[2022-08-30] MEDS: AMIODARONE HCL 200 MG TAB PO SCH (11:47)
[2022-08-30] MEDS: PANTOPRAZOLE 40 MG/10 ML VIAL INJ IV SCH (11:47)
[2022-08-30] MEDS: AZITHROMYCIN 500MG/ 250ML 250 ML IV SCH (11:47)
[2022-08-30 13:00] VITALS: BP 115/68
[2022-08-30 17:08] VITALS: BP 107/55
== END 2022-08-30 18:30 | DRG 241 ==
LOC: EDBD 18:29 → ER 18:29 → TELE 23:00 → ICU WEST 08-22 09:03 → TELE-EAST 08-25 21:53 → TELE-CENTR 08-26 18:55
PROVIDERS: ADMIT Registered Nurse; ATTEND Family Medicine
PROC: 30233N1 Transfusion of Nonautologous Red Blood Cells into Peripheral Vein, Percutaneous Approach (ICD-10-PCS; principal; 2022-08-18)
PROC: 06HY33Z Insertion of Infusion Device into Lower Vein, Percutaneous Approach (ICD-10-PCS; 2022-08-19)
PROC: 0DB68ZX Excision of Stomach, Via Natural or Artificial Opening Endoscopic, Diagnostic (ICD-10-PCS; 2022-08-24)
PROC: 0DB48ZX Excision of Esophagogastric Junction, Via Natural or Artificial Opening Endoscopic, Diagnostic (ICD-10-PCS; 2022-08-24)
PROC: 0DB98ZZ Excision of Duodenum, Via Natural or Artificial Opening Endoscopic (ICD-10-PCS; 2022-08-24)
PROC: 0W9G3ZZ Drainage of Peritoneal Cavity, Percutaneous Approach (ICD-10-PCS; 2022-08-30)
DX: K29.71 Gastritis, unspecified, with bleeding (principal); K76.7 Hepatorenal syndrome; N17.0 Acute kidney failure with tubular necrosis; I50.31 Acute diastolic (congestive) heart failure; E43 Unspecified severe protein-calorie malnutrition; E87.20 Acidosis, unspecified; D62 Acute posthemorrhagic anemia; J18.9 Pneumonia, unspecified organism; Z20.822 Contact with and (suspected) exposure to COVID-19; D64.9 Anemia, unspecified; K76.82 Hepatic encephalopathy; E11.22 Type 2 diabetes mellitus with diabetic chronic kidney disease; I13.0 Hypertensive heart and chronic kidney disease with heart failure and stage 1 through stage 4 chronic kidney disease, or unspecified chronic kidney disease; E03.9 Hypothyroidism, unspecified; E66.01 Morbid (severe) obesity due to excess calories; E78.5 Hyperlipidemia, unspecified; I44.0 Atrioventricular block, first degree; J98.11 Atelectasis; K80.20 Calculus of gallbladder without cholecystitis without obstruction; N18.2 Chronic kidney disease, stage 2 (mild); N40.0 Benign prostatic hyperplasia without lower urinary tract symptoms; E87.5 Hyperkalemia; H91.90 Unspecified hearing loss, unspecified ear; K70.31 Alcoholic cirrhosis of liver with ascites; I48.0 Paroxysmal atrial fibrillation; E88.09 Other disorders of plasma-protein metabolism, not elsewhere classified; K31.7 Polyp of stomach and duodenum; Z68.41 Body mass index [BMI] 40.0-44.9, adult
CPT/HCPCS: 36415; 36600; 71045; 74176; 76700; 76942; 80048; 80053; 80061; 80307; 80320; 81001; 82140; 82270; 82306; 82570; 82607; 82728; 82746; 82805; 82962; 83036; 83540; 83550; 83615; 83735; 83880; 83970; 83986; 84100; 84156; 84300; 84443; 84484; 85025; 85045; 85610; 85730; 86704; 86706; 86708; 86803; 86850; 86900; 86901; 86920; 87040; 87081; 87205; 87340; 87426; 89051; 92610; 93005; 93306; 93970; 94640; 96365; 96367; 96368; 96375; 99291; C9113; G0378; J0696; J1815; J2250; J2405; J2704; J3490; P9047

== ENCOUNTER 2022-09-13 16:45 | Inpatient (IN) | payer MEDICAID ==
[~2022-09-13] VITALS: Ht 182.9 cm; Wt 133.0 kg
[~2022-09-13 16:45] MED LIST: ALLO100T PO; ATOR20TA50 PO; FOLI1TAB6 PO; FURO40TA4 PO; GAB100C PO; GABA300C10 PO; LEVO175T66 PO; MAGN400T6 PO; PANT40T PO; TAMS0.4C36 PO
[2022-09-13] MEDS ORDERED: ONDANSETRON HCL 4 MG/2 ML VIAL IV ONE (19:00)
[2022-09-13 20:01] LABS: Basophils # (auto) 0 10 ^3/uL (0-0.2); Basophils % (auto) 0.8 % (0.0-2.0); Eosinophils # (auto) 0.1 10 ^3/uL (0-0.8); Eosinophils % (auto) 2.4 % (0.0-7.0); Hematocrit 30.7 % (41.0-53.0); Hemoglobin 9.9 g/dL (13.5-17.5); Lymphocytes # (auto) 0.9 10 ^3/uL (0.4-5.4); Lymphocytes % (auto) 15.5 % (10.0-50.0); Mean Corpuscular Hemoglobin 28.2 pg (28.0-32.0); Mean Corpuscular Hgb Conc. 32.4 g/dL (32.0-36.0); Mean Corpuscular Volume 87.1 fL (80.0-100.0); Monocytes # (auto) 0.6 10 ^3/uL (0-1.3); Monocytes % (auto) 9.8 % (0.0-12.0); Neutrophils # (auto) 4.4 10 ^3/uL (1.6-8.6); Neutrophils % (auto) 71.5 % (37.0-80.0); Nucleated Red Blood Cells % 0.1 %; Red Blood Cells 3.52 10^6/uL (4.5-5.90); White Blood Cell 6.1 10^3/uL (4.4-10.8)
[2022-09-13 20:03] LABS: Red Cell Distribution Width 21.3 % (11.8-14.3)
[2022-09-13 20:16] LABS: Albumin 2.6 g/dL (3.4-5.0); Calcium 8.6 mg/dL (8.5-10.1); INR 1.15 (0.9-1.15); Magnesium 2.5 mg/dL (1.6-2.6); Partial Thromboplastin Time 32.8 sec (24.6-33.4); Potassium 4.8 mmol/L (3.5-5.1)
[2022-09-13 20:19] LABS: BUN/Creatinine Ratio 15.4; Bilirubin, Total 0.9 mg/dL (0.2-1.0); Total Protein 5.9 g/dL (6.4-8.2)
[2022-09-14] MEDS ORDERED: FUROSEMIDE 20 MG/2 ML VIAL IV ONE (01:00)
[2022-09-14] MEDS ORDERED: DEXTROSE (50%) 50ML SYRG IV PRN (01:00)
[2022-09-14] MEDS ORDERED: TEMAZEPAM 15 MG CAP PO PRN (01:00)
[2022-09-14] MEDS ORDERED: ONDANSETRON HCL 4 MG/2 ML VIAL IV PRN (01:00)
[2022-09-14] MEDS: LEVOTHYROXINE SODIUM 50 MCG TAB PO SCH (06:05)
[2022-09-14] MEDS: MIDODRINE HCL 10 MG TAB PO SCH ×3 (06:05→18:06)
[2022-09-14] MEDS: GABAPENTIN 300 MG CAP PO SCH ×3 (06:05→23:00)
[2022-09-14] MEDS: InsuLIN REG 1unit/0.01ml Soln (100units/ml) SC SCH ×4 (06:33→22:56)
[2022-09-14] MEDS: ACCU-CHEK COMFORT CURVE STRIP VI SCH ×4 (06:33→22:00)
[2022-09-14] MEDS: AMIODARONE HCL 200 MG TAB PO SCH (10:08)
[2022-09-14] MEDS: PANTOPRAZOLE 40 MG TAB PO SCH (10:08)
[2022-09-14] MEDS: FUROSEMIDE 40 MG TAB PO SCH (10:08)
[2022-09-14 13:28] VITALS: BP 102/64
[2022-09-14] MEDS: OCTREOTIDE ACETATE 100 MCG/ML VL SUBCUT SCH ×2 (14:00→23:05)
[2022-09-14] MEDS: ALBUMIN 25% 100 ML IV SCH ×2 (16:10→21:54)
[2022-09-14] MEDS: TAMSULOSIN HYDROCHLORIDE 0.4 MG CAP PO SCH (18:06)
[2022-09-14] MEDS: ALPRAZolam 0.5 MG TAB PO PRN (18:52)
[2022-09-14 22:00] VITALS: BP 84/52
[2022-09-14] MEDS: ATORVASTATIN 20 MG TAB PO SCH (23:00)
[2022-09-15 05:00] VITALS: BP 78/41
[2022-09-15] MEDS: ALBUMIN 25% 100 ML IV SCH (06:04)
[2022-09-15] MEDS: GABAPENTIN 300 MG CAP PO SCH ×3 (06:13→21:34)
[2022-09-15] MEDS: MIDODRINE HCL 10 MG TAB PO SCH ×3 (06:13→17:03)
[2022-09-15 06:29] LABS: Basophils # (auto) 0 10 ^3/uL (0-0.2); Eosinophils # (auto) 0.1 10 ^3/uL (0-0.8); Hematocrit 26.7 % (41.0-53.0); Hemoglobin 8.8 g/dL (13.5-17.5); Lymphocytes # (auto) 0.9 10 ^3/uL (0.4-5.4); Lymphocytes % (auto) 19.3 % (10.0-50.0); Mean Corpuscular Hemoglobin 29.1 pg (28.0-32.0); Mean Corpuscular Volume 88.1 fL (80.0-100.0); Monocytes # (auto) 0.8 10 ^3/uL (0-1.3); Monocytes % (auto) 17.7 % (0.0-12.0); Neutrophils # (auto) 2.6 10 ^3/uL (1.6-8.6); Red Blood Cells 3.03 10^6/uL (4.5-5.90); White Blood Cell 4.5 10^3/uL (4.4-10.8)
[2022-09-15 06:35] LABS: Red Cell Distribution Width 21.3 % (11.8-14.3)
[2022-09-15 06:43] LABS: Potassium 4.4 mmol/L (3.5-5.1)
[2022-09-15 06:45] VITALS: BP 87/58
[2022-09-15 06:50] LABS: Albumin 2.6 g/dL (3.4-5.0); BUN/Creatinine Ratio 15.6; Calcium 8.6 mg/dL (8.5-10.1)
[2022-09-15 06:53] LABS: Bilirubin, Total 1.1 mg/dL (0.2-1.0); Total Protein 5.4 g/dL (6.4-8.2)
[2022-09-15] MEDS: InsuLIN REG 1unit/0.01ml Soln (100units/ml) SC SCH ×4 (07:00→21:41)
[2022-09-15] MEDS: ACCU-CHEK COMFORT CURVE STRIP VI SCH ×4 (07:00→21:35)
[2022-09-15] MEDS: LEVOTHYROXINE SODIUM 50 MCG TAB PO SCH (07:33)
[2022-09-15] MEDS: OCTREOTIDE ACETATE 100 MCG/ML VL SUBCUT SCH ×3 (07:35→21:35)
[2022-09-15 08:15] VITALS: BP 102/55
[2022-09-15] MEDS: PANTOPRAZOLE 40 MG TAB PO SCH (09:31)
[2022-09-15] MEDS: AMIODARONE HCL 200 MG TAB PO SCH (09:31)
[2022-09-15] MEDS: FUROSEMIDE 40 MG TAB PO SCH (09:32)
[2022-09-15 12:15] VITALS: BP 94/62
[2022-09-15 15:05] LABS: Creatinine, Urine 97 mg/dL (30.0-125.0); Protein, Urine 24.1 mg/dL (0.0-11.9); Sodium Urine < 5 mmol/L (40-220)
[2022-09-15 16:15] VITALS: BP 91/59
[2022-09-15 16:26] LABS: Urine Bacteria FEW /hpf (None Seen); Urine Blood 1+ /uL (Negative); Urine Hyaline Cast FEW /lpf (0 - 2); Urine Specific Gravity 1.011 (1.001-1.035); Urine WBC 4 /hpf (0 - 3)
[2022-09-15] MEDS: TAMSULOSIN HYDROCHLORIDE 0.4 MG CAP PO SCH (17:03)
[2022-09-15] MEDS: ALPRAZolam 0.5 MG TAB PO PRN (19:50)
[2022-09-15] MEDS: ATORVASTATIN 20 MG TAB PO SCH (21:34)
[2022-09-15 22:00] VITALS: BP 80/60
[2022-09-16 05:00] VITALS: BP 90/62
[2022-09-16] MEDS: LEVOTHYROXINE SODIUM 50 MCG TAB PO SCH (06:06)
[2022-09-16] MEDS: GABAPENTIN 300 MG CAP PO SCH ×3 (06:09→22:11)
[2022-09-16] MEDS: MIDODRINE HCL 10 MG TAB PO SCH ×3 (06:09→17:31)
[2022-09-16] MEDS: OCTREOTIDE ACETATE 100 MCG/ML VL SUBCUT SCH ×3 (06:12→22:12)
[2022-09-16] MEDS: ACCU-CHEK COMFORT CURVE STRIP VI SCH ×4 (06:12→22:12)
[2022-09-16] MEDS: InsuLIN REG 1unit/0.01ml Soln (100units/ml) SC SCH ×4 (06:12→21:50)
[2022-09-16 09:00] VITALS: BP 92/54
[2022-09-16] MEDS: PANTOPRAZOLE 40 MG TAB PO SCH (10:00)
[2022-09-16] MEDS: AMIODARONE HCL 200 MG TAB PO SCH (10:00)
[2022-09-16] MEDS: FUROSEMIDE 40 MG TAB PO SCH (10:00)
[2022-09-16] MEDS: ALBUMIN 25% 100 ML IV SCH (10:00)
[2022-09-16 13:00] VITALS: BP 91/84
[2022-09-16 17:00] VITALS: BP 98/56
[2022-09-16] MEDS: TAMSULOSIN HYDROCHLORIDE 0.4 MG CAP PO SCH (17:30)
[2022-09-16] MEDS: ALPRAZolam 0.5 MG TAB PO PRN (17:38)
[2022-09-16 22:00] VITALS: BP 92/60
[2022-09-17 05:00] VITALS: BP 78/59
[2022-09-17] MEDS: InsuLIN REG 1unit/0.01ml Soln (100units/ml) SC SCH ×4 (05:27→22:07)
[2022-09-17 06:00] VITALS: BP 85/50
[2022-09-17] MEDS: GABAPENTIN 300 MG CAP PO SCH ×3 (06:03→22:04)
[2022-09-17] MEDS: LEVOTHYROXINE SODIUM 50 MCG TAB PO SCH (06:03)
[2022-09-17] MEDS: MIDODRINE HCL 10 MG TAB PO SCH ×3 (06:03→18:00)
[2022-09-17] MEDS: ACCU-CHEK COMFORT CURVE STRIP VI SCH ×4 (06:06→22:08)
[2022-09-17] MEDS: OCTREOTIDE ACETATE 100 MCG/ML VL SUBCUT SCH ×3 (06:06→22:04)
[2022-09-17 06:14] LABS: Basophils # (auto) 0 10 ^3/uL (0-0.2); Basophils % (auto) 0.7 % (0.0-2.0); Eosinophils # (auto) 0.1 10 ^3/uL (0-0.8); Eosinophils % (auto) 3.4 % (0.0-7.0); Hematocrit 26.4 % (41.0-53.0); Lymphocytes # (auto) 0.9 10 ^3/uL (0.4-5.4); Lymphocytes % (auto) 21.7 % (10.0-50.0); Mean Corpuscular Hemoglobin 29.8 pg (28.0-32.0); Mean Corpuscular Hgb Conc. 34.2 g/dL (32.0-36.0); Mean Corpuscular Volume 87.3 fL (80.0-100.0); Monocytes # (auto) 0.4 10 ^3/uL (0-1.3); Monocytes % (auto) 9.3 % (0.0-12.0); Neutrophils # (auto) 2.6 10 ^3/uL (1.6-8.6); Neutrophils % (auto) 64.9 % (37.0-80.0); Red Blood Cells 3.03 10^6/uL (4.5-5.90)
[2022-09-17 06:17] LABS: Red Cell Distribution Width 22.1 % (11.8-14.3)
[2022-09-17 06:58] LABS: Potassium 4.6 mmol/L (3.5-5.1)
[2022-09-17 07:04] LABS: Albumin 2.7 g/dL (3.4-5.0); BUN/Creatinine Ratio 16.4; Calcium 8.6 mg/dL (8.5-10.1)
[2022-09-17 07:07] LABS: Bilirubin, Total 0.9 mg/dL (0.2-1.0); Total Protein 4.9 g/dL (6.4-8.2)
[2022-09-17 08:46] VITALS: BP 86/40
[2022-09-17] MEDS: FUROSEMIDE 40 MG TAB PO SCH (10:00)
[2022-09-17] MEDS: ALBUMIN 25% 100 ML IV SCH (10:08)
[2022-09-17] MEDS: PANTOPRAZOLE 40 MG TAB PO SCH (10:17)
[2022-09-17] MEDS: AMIODARONE HCL 200 MG TAB PO SCH (10:17)
[2022-09-17 13:00] VITALS: BP 85/44
[2022-09-17 16:46] VITALS: BP 99/49
[2022-09-17] MEDS: TAMSULOSIN HYDROCHLORIDE 0.4 MG CAP PO SCH (18:00)
[2022-09-17] MEDS: HYDROcodone-ACET 5/325MG TAB PO PRN ×2 (21:58→22:05)
[2022-09-17 22:00] VITALS: BP 102/59
[2022-09-18] MEDS: ALPRAZolam 0.5 MG TAB PO PRN ×3 (00:51→18:50)
[2022-09-18 05:00] VITALS: BP 100/58
[2022-09-18] MEDS: OCTREOTIDE ACETATE 100 MCG/ML VL SUBCUT SCH ×2 (06:06→14:00)
[2022-09-18] MEDS: MIDODRINE HCL 10 MG TAB PO SCH ×3 (06:06→17:32)
[2022-09-18] MEDS: GABAPENTIN 300 MG CAP PO SCH ×2 (06:06→14:00)
[2022-09-18] MEDS: InsuLIN REG 1unit/0.01ml Soln (100units/ml) SC SCH ×3 (06:28→17:00)
[2022-09-18] MEDS: LEVOTHYROXINE SODIUM 50 MCG TAB PO SCH (06:43)
[2022-09-18] MEDS: ACCU-CHEK COMFORT CURVE STRIP VI SCH ×3 (06:44→17:00)
[2022-09-18 09:00] VITALS: BP 94/58
[2022-09-18] MEDS: PANTOPRAZOLE 40 MG TAB PO SCH (10:00)
[2022-09-18] MEDS: ALBUMIN 25% 100 ML IV SCH (10:00)
[2022-09-18] MEDS: AMIODARONE HCL 200 MG TAB PO SCH (10:00)
[2022-09-18] MEDS: FUROSEMIDE 40 MG TAB PO SCH (10:00)
[2022-09-18] MEDS: HYDROcodone-ACET 5/325MG TAB PO PRN ×2 (11:29→17:11)
[2022-09-18 13:00] VITALS: BP 101/60
[2022-09-18 16:51] VITALS: BP 89/50
[2022-09-18 17:14] VITALS: BP 94/58
[2022-09-18] MEDS: TAMSULOSIN HYDROCHLORIDE 0.4 MG CAP PO SCH (17:32)
== END 2022-09-18 20:18 ==
LOC: EDBD 16:45 → ER 16:45 → OVERFLOW 09-14 01:03 → EAST 09-14 12:40 → WEST WING 09-14 18:02
PROVIDERS: ADMIT Nurse Practitioner; ATTEND Family Medicine
PROC: 0W9G3ZZ Drainage of Peritoneal Cavity, Percutaneous Approach (ICD-10-PCS; principal; 2022-09-14)
DX: K74.60 Unspecified cirrhosis of liver (principal); N17.0 Acute kidney failure with tubular necrosis; K76.7 Hepatorenal syndrome; I50.33 Acute on chronic diastolic (congestive) heart failure; E43 Unspecified severe protein-calorie malnutrition; R18.8 Other ascites; I42.9 Cardiomyopathy, unspecified; D64.9 Anemia, unspecified; E11.22 Type 2 diabetes mellitus with diabetic chronic kidney disease; I48.0 Paroxysmal atrial fibrillation; I13.0 Hypertensive heart and chronic kidney disease with heart failure and stage 1 through stage 4 chronic kidney disease, or unspecified chronic kidney disease; E03.9 Hypothyroidism, unspecified; H91.90 Unspecified hearing loss, unspecified ear; N18.9 Chronic kidney disease, unspecified; E78.00 Pure hypercholesterolemia, unspecified; E66.01 Morbid (severe) obesity due to excess calories; Z20.822 Contact with and (suspected) exposure to COVID-19; R09.89 Other specified symptoms and signs involving the circulatory and respiratory systems; G62.9 Polyneuropathy, unspecified; N40.0 Benign prostatic hyperplasia without lower urinary tract symptoms; Z79.899 Other long term (current) drug therapy; Z74.01 Bed confinement status; Z80.0 Family history of malignant neoplasm of digestive organs; Z68.39 Body mass index [BMI] 39.0-39.9, adult
CPT/HCPCS: 36415; 71045; 74176; 76705; 76775; 76942; 80053; 81001; 82105; 82140; 82306; 82570; 82962; 83605; 83690; 83735; 83880; 83970; 83986; 84100; 84156; 84300; 84484; 85025; 85610; 85730; 87040; 87081; 87205; 87426; 89051; 97116; 97163; 97530; G0378; J1815; J2405; P9047